=== PATIENT | male | born 2000 | race Hispanic/Latino ===

== ENCOUNTER 2022-09-14 13:23 | Emergency (ER) | payer MEDICAID, OTHER ==
[~2022-09-14] VITALS: Ht 182.9 cm; Wt 158.8 kg
[2022-09-14 13:51] LABS: BASOPHILS % (AUTO) 0.2 % (0.0-5.0); HEMATOCRIT 45.4 % (42-54); LYMPHOCYTES % (AUTO) 8.3 % (21.0-51.0); MEAN CORPUSCULAR HEMOGLOBIN 28.1 pg (27.0-33.0); MEAN CORPUSCULAR HGB CONC 33.5 g/dL (32.0-36.0); MEAN CORPUSCULAR VOLUME 83.9 fL (79-99); MONOCYTES % (AUTO) 3.1 % (3.0-13.0); NEUTROPHILS % (AUTO) 88.1 % (40.0-77.0); PLATELET COUNT (AUTO) 251 K/uL (130-400); RED BLOOD CELL COUNT(AUTO) 5.41 MIL/uL (4.50-6.20); RED CELL DISTRIBUTION WIDTH 13.2 % (11.0-15.5); WHITE BLOOD COUNT (AUTO) 11.8 K/uL (4.8-10.8)
[2022-09-14] MEDS ORDERED: 0.9%NACL 1000ML 1,000 ML IV ONE (14:00)
[2022-09-14 14:02] LABS: CREATININE 1.4 mg/dL (0.5-1.5); POTASSIUM 4.4 mmol/L (3.5-5.1)
[2022-09-14 14:07] LABS: ALBUMIN 4.1 g/dL (3.5-5.0); TOTAL PROTEIN, SERUM 8.4 g/dL (6.0-8.3)
[2022-09-14] MEDS ORDERED: KETOROLAC 30MG VIAL (30MG/ML) ONE (14:20)
[2022-09-14] MEDS ORDERED: CEPH500B PO (15:51)
[2022-09-14] MEDS ORDERED: TAMS-1 PO (15:51)
[2022-09-14] MEDS ORDERED: KETO10TA2 PO (15:51)
[2022-09-14] MEDS ORDERED: 0.9% NACL 500ML IV.SOLN 500 ML IV SCH (16:00)
[2022-09-14] MEDS ORDERED: TAMSULOSIN HCL 0.4 MG CAP.ER.24H PO SCH (16:00)
[2022-09-14 17:03] VITALS: BP 168/84
== END 2022-09-14 17:04 | disposition home or self-care (01) ==
LOC: EDH 13:23
DX: N20.1 Calculus of ureter (principal)
CPT/HCPCS: 99284; 74176; 96374; 96361; 80053; 85025; 36415; J7040; J7030; J1885